=== PATIENT | female | born 1965 | race Caucasian/White ===

== ENCOUNTER 2022-05-09 04:32 | Emergency (ER) | payer OTHER ==
[~2022-05-09] VITALS: Ht 170.2 cm; Wt 72.6 kg
[2022-05-09 04:37] VITALS: BP 140/79
--- NOTE | 2022-05-09 04:58 | NUR ---
Dr. Leigh examining patient.
--- NOTE | 2022-05-09 04:59 | NUR ---
CODE BRAIN INTITIATED PER DR. PANG. RADIOLOGY MADE AWARE
--- NOTE | 2022-05-09 05:06 | NUR ---
PT TAKEN TO CT
[2022-05-09 05:17] LABS: BASOPHILS % (AUTO) 0.8 % (0.0-2.0); EOSINOPHILS # (AUTO) 0.1 K/uL (0-0.4); EOSINOPHILS % (AUTO) 2.1 % (0.0-4.0); HEMATOCRIT 40.2 % (36-48); HEMOGLOBIN 13.6 g/dL (12.0-16.0); LYMPHOCYTES # (AUTO) 2.4 K/uL (2.5-16.5); LYMPHOCYTES % (AUTO) 37.5 % (20.5-51.1); MEAN CORPUSCULAR HEMOGLOBIN 30 pg (27-31); MEAN CORPUSCULAR HGB CONC 34 g/dL (33-37); MEAN CORPUSCULAR VOLUME 87.4 fL (80-94); MONOCYTES # (AUTO) 0.4 K/uL (0.8-1.0); MONOCYTES % (AUTO) 6.8 % (1.7-9.3); NEUTROPHILS # (AUTO) 3.4 K/uL (1.8-7.7); NEUTROPHILS % (AUTO) 52.8 % (42.2-75.2); PLATELET COUNT (AUTO) 283 K/uL (140-450); RED CELL DISTRIBUTION WIDTH 12.7 % (11.6-13.7); WHITE BLOOD COUNT (AUTO) 6.4 K/uL (4.8-10.8)
--- NOTE | 2022-05-09 05:28 | NUR ---
PT RETURN FROM CT
--- NOTE | 2022-05-09 05:45 | NUR ---
56 Y/O F presents with L facial weakness/numb feeling. pt denies at pain at the moment. pt stated she has NV but denies diarrhea. pt stated she was getting ready for work and had coffee and noticed L weakness and numb feeling on facial area. pt is A&Ox4, skin intact, respirations even and unlabored. PMH-pt denies NKA
[2022-05-09 05:46] LABS: ALBUMIN 3.8 g/dL (3.4-5.0); ANION GAP 7.7 (8-16); ASPARTATE AMINOTRANSFERASE 9 U/L (15-37); CARBON DIOXIDE 29.9 mmol/L (21-32); CHLORIDE 105 mmol/L (98-107); CREATININE 0.6 mg/dL (0.6-1.3); GFR ARICAN-AMERICAN 133 mL/min (>90); GLUCOSE 252 mg/dL (74-106); POTASSIUM 3.6 mmol/L (3.5-5.1); SODIUM SERUM 139 mmol/L (136-145); UREA NITROGEN, BLOOD 13 mg/dL (7-18)
--- NOTE | 2022-05-09 06:05 | NUR ---
[facility] INITIATED PER DR. PANG
--- NOTE | 2022-05-09 06:09 | NUR ---
pt's son at bedside
--- NOTE | 2022-05-09 06:30 | NUR ---
[facility] DOCTOR CALLED AND SPOKE WITH DR. LONG
--- NOTE | 2022-05-09 06:34 | NUR ---
[facility] DOCTOR SPEAKING WITH PATIENT
[2022-05-09] MEDS ORDERED: NACL 0.9% 1,000 ML IV ONE (06:50)
[2022-05-09] MEDS ORDERED: KETOROLAC 15 MG/ML VIAL IVP ONE (06:50)
[2022-05-09] MEDS ORDERED: DEXAMETHASONE 10 MG/ML VIAL IVP ONE (06:50)
[2022-05-09] MEDS ORDERED: diphenhydrAMINE 50 MG/ML VIAL IVP ONE (06:50)
[2022-05-09] MEDS ORDERED: PROCHLORPERAZINE 10 MG/2 ML VIAL IVP ONE (06:50)
--- NOTE | 2022-05-09 06:58 | NUR ---
daughter at bedside.
[2022-05-09] MEDS ORDERED: FLUO10CA21 PO (07:01)
[2022-05-09] MEDS ORDERED: LISI5TAB18 PO (07:04)
[2022-05-09] MEDS ORDERED: INSU100S10 SC (07:05)
[2022-05-09] MEDS ORDERED: OMEP20EC11 PO (07:06)
[2022-05-09] MEDS ORDERED: NAPR-1704 PO (07:07)
--- NOTE | 2022-05-09 07:24 | NUR ---
spoke with insurance company and gave report in regards to pt
--- NOTE | 2022-05-09 07:31 | NUR ---
Report and continuation of care received from DARRIN Tim.
--- NOTE | 2022-05-09 07:40 | NUR ---
Received patient resting in semi-fowlers position. A&Ox4; pt states left sided facial/neck numbness since 0500 while getting ready for work. quality assurance monitor body in place. BP 150/76; respirations even/unlabored. Bed locked in lowest position, side rails x1.
--- NOTE | 2022-05-09 09:40 | NUR ---
Patient resting in semi-fowlers position with both eyes closed. Patient awaken and presents A&Ox4, states "I feel very sleepy." Daughter at bedside reports patient without left sided numbness/weakness to face/neck at this time. All pt needs met. highway maintainer in place. Bed locked in lowest position, side rails x 1, call light in reach.
--- NOTE | 2022-05-09 11:11 | NUR ---
Transport consent discussed and signed by patient.
--- NOTE | 2022-05-09 11:25 | NUR ---
Patient resting in semi-fowlers position. threat monitoring analyst in place. Denies headache; states left sided neck numbness alleviated; with slight left sided facial numbness. Bed locked in lowest position, side rails x 1. Daughter remains at bedside.
--- NOTE | 2022-05-09 11:37 | NUR ---
[facility] at bedside
--- NOTE | 2022-05-09 11:46 | NUR ---
Report given to BRENT Henry.
[2022-05-09 11:47] VITALS: BP 113/65
--- NOTE | 2022-05-09 11:47 | NUR ---
Patient to be transferred to [facility] ER. Is being transferred due to insurance request. Receiving facility has accepting physician and available space. ER physician has signed transfer form. Patient or responsible democrat has agreed to transfer and signed form. Patient belongings inventoried and will be sent with patient. Copy of nursing notes, lab reports, EKG, Physicians Orders and X-rays to be sent with patient. Report called to BRENT Henry at receiving facility. [facility] ambulance service has been called for transfer. ETA is [id number].
== END 2022-05-09 11:47 | disposition short-term general hospital (02) ==
LOC: MED 04:32
DX: R29.810 Facial weakness (principal); Z20.822 Contact with and (suspected) exposure to COVID-19; R20.0 Anesthesia of skin; E11.9 Type 2 diabetes mellitus without complications; Z79.4 Long term (current) use of insulin; Z79.899 Other long term (current) drug therapy
CPT/HCPCS: 36415; 70450; 70496; 70498; 80053; 84484; 85025; 87426; 93005; 96361; 96374; 96375; 99291; J0780; J1100; J1200; J1885; J7030; Q9967